=== PATIENT | female | born 1950 | race Caucasian/White ===

== ENCOUNTER 2022-08-28 08:07 | Outpatient (AMB) | payer MEDICARE, OTHER, SELFPAY ==
--- NOTE | 2022-08-28 08:09 | MHC.OFFWIV ---
Intake Vital Signs 08/28/22 08:11 Height 5 ft 4 in BP 146/84 H Blood Pressure Location Rt brachial Position Sitting Pulse 77 Pulse Source Pulse Oximeter Temp 98.2 F Temp Source Oral Pulse Oximetry (%) 95 Oxygen Delivery Method Room Air Intake Visit Reasons: EP sore throat, ears (re[place], masked) Intake Note: Pt is here for sore and Rt ear pain. Pt states started a wk ago Allergies hydrochlorothiazide Allergy (Unknown, Verified 08/28/22 08:32) vaginal and abdominal pain Medication List - Last Reconciled 08/28/22 by Brock Gonzalez MD fluticasone propionate 50 mcg/actuation 1 spray intranasal DAILY levothyroxine (Synthroid) 150 mcg PO DAILY nebivolol 5 mg PO DAILY PRN ofloxacin 0.3% 5 drps otic (ear) left Q12H 7 days Do you need a note to return to daycare/school/sports/work: No HPI EP sore throat, ears (re[place], masked) HPI Details Patient presents for a sick visit. Reporting symptoms of sinus congestion, sore throat and difficulty swallowing. Low-grade fever. No family member is sick. No recent travel. Patient reports symptoms of malaise and fatigue. Physical Exam Vital Signs: Last Vital Signs Temp 98.2 F 08/28/22 08:11 Pulse 77 08/28/22 08:11 BP 146/84 H 08/28/22 08:11 Pulse Ox 95 08/28/22 08:11 Oxygen Delivery Method Room Air 08/28/22 08:11 Const General: cooperative and healthy appearing Nutritional Appearance: well nourished Orientation/consciousness: patient oriented x3 Limitations: no limitations HEENT Head: Yes normal to inspection Eyes General: appearance normal, both eyes and all related structures Neck Neck: Yes normal visual inspection Chest Chest palpation & inspection: normal palpation of entire chest wall Resp Effort & Inspection: normal respiratory effort Neuro General: patient oriented x3 Results AMB Rapid Strep AMB Rapid Strep Negative Last Edit by Zora Richards CMA on 08/28/22 08:32 Results Reviewed Results Reviewed: Laboratory Last Values Strep Scn [facility] Negative 08/28/22 08:15 Assessment & Plan Assessment & Plan (1) Upper respiratory tract infection: Code(s): J06.9 - Acute upper respiratory infection, unspecified Plan: Increase fluid intake. Tylenol for aches and pains. If symptoms worsen, follow-up here for a recheck. Strep test was negative. Self-limiting illness. No antibiotics needed. Orders: Orders AMB Rapid Strep Screen Today Z13.9 - Encounter for screening, unspecified Coding Level of Care Code Est Pt Level 3 (22083) Diagnoses Upper respiratory tract infection J06.9
[2022-08-28 08:11] VITALS: BP 146/84; PULSE 77; TEMP 36.8; O2SAT 95
== END 2022-08-28 08:30 | disposition home or self-care (01) ==
PROVIDERS: PCP Internal Medicine; Visit Provider Internal Medicine
DX: J06.9 Acute upper respiratory infection, unspecified (principal)
CPT/HCPCS: 87880; 99213